=== PATIENT | female | born 1995 | race American Indian/Alaskan Native ===

== ENCOUNTER 2020-07-12 13:57 | Outpatient (CLI) | payer SELFPAY ==
[2020-07-12 14:36] VITALS: BP 85/51
== END 2020-07-12 15:10 | disposition home or self-care (01) ==
LOC: TRG 13:57 → APU 13:58 → TRG 15:10
PROVIDERS: ATTEND Obstetrics & Gynecology
DX: O26.892 Other specified pregnancy related conditions, second trimester (principal); R42 Dizziness and giddiness; Z3A.20 20 weeks gestation of pregnancy
CPT/HCPCS: 59025